=== PATIENT | male | born 1995 | race Caucasian/White ===

== ENCOUNTER → 2018-10-29 | Outpatient (CLI) | payer OTHER ==
--- NOTE | 2018-10-29 16:36 | REP ---
MRI left shoulder without contrast: History: Left shoulder pain. Comparison radiographs June 08, 2018. Technique: Axial, oblique coronal and oblique sagittal imaging planes are utilized. T1 and T2-weighted scans were obtained with and without fat saturation. MRI findings: Cortical and medullary bone signal intensity are normal. Glenohumeral and acromioclavicular joint alignment is normal. There is a small sliver of fluid in the subacromial subdeltoid bursa. There is a mild swelling and increased signal intensity diffusely in the distal supraspinatus tendon consistent with tendinosis. No focal cuff tear is seen. Superior labrum is intact. There is no visible anterior labral tear. There is a fluid signal intensity tracking under the posterior labral cartilage on axial T2-weighted scans raising question of nondisplaced posterior labral tear. The subscapularis, infraspinatus, and biceps tendons have an intact appearance. IMPRESSION: Question nondisplaced posterior labral tear. Supraspinatus tendinosis. Subacromial deltoid bursal effusion. Otherwise negative. Electronically Signed by Donald Juarez MD 10/29/2018 04:57 P
== END ==
LOC: M RAD 14:52
DX: M25.512 Pain in left shoulder (principal)